=== PATIENT | male | born 1945 | race Caucasian/White ===

== ENCOUNTER → 2017-07-30 15:07 | Outpatient (CLI) | payer MEDICARE, BC ==
[2013-12-30 16:09] VITALS: BMI 30.5
[~2017-07-30 15:07] MED LIST: ASPIRIN EC325 M1 PO; ASPIRIN EC81 MG; CORDARONE200 MG PO; FISH OIL 1,0001 CA1 PO; FLAXSEED OIL1000 MG PO; HEMOCYTE PLUS1 CAP PO; K-DUR20 MEQ PO; LOFIBRA134 MG; LOPRESSOR25 MG PO; NORCO 5/325 TAB1 TA1 PO; PLAVIX75 MG PO; PRAVACHOL80 MG PO; SYNTHROID150 MCG PO; VITAMIN D31000 UNIT PO
== END | disposition home or self-care (01) ==
LOC: D.US 15:07
DX: I65.23 Occlusion and stenosis of bilateral carotid arteries (principal)

== ENCOUNTER → 2018-12-12 08:58 | Outpatient (CLI) | payer MEDICARE, BC ==
[2013-12-30 16:09] VITALS: BMI 30.5
== END | disposition home or self-care (01) ==
LOC: D.US 08:58
DX: I65.23 Occlusion and stenosis of bilateral carotid arteries (principal)

== ENCOUNTER → 2021-03-11 09:31 | Outpatient (CLI) | payer MEDICARE ==
[2013-12-30 16:09] VITALS: BMI 30.5
== END | disposition home or self-care (01) ==
LOC: D.US 02-10 08:00
PROVIDERS: ATTEND Thoracic Surgery (Cardiothoracic Vascular Surgery)
DX: I65.23 Occlusion and stenosis of bilateral carotid arteries (principal)